=== PATIENT | female | born 1940 | race Caucasian/White ===

== ENCOUNTER → 2017-04-08 | Outpatient (CLI) | payer MEDICARE, BC ==
[~2017-04-08] MED LIST: DIGESTIVE ENZYM1 TAB PO; ESTER C PO; FLAXSEED; GINGER ROOT; GLYCERIN PO; LICORICE ROOT; LUTEIN20 M1; MELAT3MGTAB; METHYL B12; NATURAL E400 IU PO; PRASTERONE; PRILOSEC 20MG20 MG PO; PROBIOTICA100 Milli1 PO; TAURINE; THYROID PO; VITAL-D1 TAB PO; VITAMIN D31000 IU PO; VITAMIN PO; [UNRECOGNIZED DRUG - OTHER]; [UNRECOGNIZED DRUG - OTHER]; [UNRECOGNIZED DRUG - OTHER]; thyroid armour PO
== END ==
LOC: MC.RAD 14:14
DX: Z12.31 Encounter for screening mammogram for malignant neoplasm of breast (principal)

== ENCOUNTER → 2018-04-13 | Outpatient (CLI) | payer MEDICARE, BC | LOC: MC.RAD 13:36 | DX: Z12.31 Encounter for screening mammogram for malignant neoplasm of breast (principal) ==

== ENCOUNTER → 2018-06-21 | Outpatient (CLI) | payer MEDICARE, BC | LOC: COL.VAS 13:54 | DX: M79.89 Other specified soft tissue disorders (principal); R79.89 Other specified abnormal findings of blood chemistry ==

== ENCOUNTER → 2019-02-07 | Outpatient (CLI) | payer MEDICARE, BC | LOC: COL.RAD 14:24 | DX: J69.0 Pneumonitis due to inhalation of food and vomit (principal) ==

== ENCOUNTER 2019-03-01 12:45 | Outpatient (RCR) | payer MEDICARE, BC | END 2019-05-04 | disposition home or self-care (01) | LOC: WSST | DX: J18.9 Pneumonia, unspecified organism (principal) ==

== ENCOUNTER → 2019-03-23 | Outpatient (CLI) | payer MEDICARE, BC ==
[~2019-03-23] VITALS: Ht 160 cm; Wt 41.3 kg
== END ==
LOC: SUN.DIA 14:10 → SUN.CLI 14:10
DX: Z71.3 Dietary counseling and surveillance (principal)

== ENCOUNTER → 2019-04-25 | Outpatient (CLI) | payer MEDICARE, BC | LOC: MC.RAD 10:15 | DX: Z12.31 Encounter for screening mammogram for malignant neoplasm of breast (principal) ==

== ENCOUNTER → 2019-10-31 | Outpatient (CLI) | payer MEDICARE, BC | LOC: MHCPAIN 12:46 | DX: M47.817 Spondylosis without myelopathy or radiculopathy, lumbosacral region (principal); M53.3 Sacrococcygeal disorders, not elsewhere classified | CPT/HCPCS: G0463 ==

== ENCOUNTER 2019-12-06 11:00 | Outpatient (RCR) | payer MEDICARE, BC | END 2020-01-05 13:24 | disposition home or self-care (01) | LOC: WSC 11:00 | DX: M53.3 Sacrococcygeal disorders, not elsewhere classified (principal); M47.817 Spondylosis without myelopathy or radiculopathy, lumbosacral region ==

== ENCOUNTER → 2020-05-22 | Outpatient (CLI) | payer MEDICARE, BC | LOC: MC.RAD 11:42 | DX: Z12.31 Encounter for screening mammogram for malignant neoplasm of breast (principal) ==

== ENCOUNTER → 2023-01-08 | Outpatient (CLI) | payer MEDICARE, BC | LOC: COL.RAD 07:20 | DX: M50.322 Other cervical disc degeneration at C5-C6 level (principal) | CPT/HCPCS: A9575 ==